=== PATIENT | male | born 1995 | race Caucasian/White ===

== ENCOUNTER 2017-01-10 19:22 | Emergency (ER) | payer BC, OTHER ==
[~2017-01-10] VITALS: Ht 182.9 cm; Wt 92.0 kg
[2017-01-10 19:26] VITALS: Ht 182.9 cm; Wt 92.0 kg
[2017-01-10] MEDS ORDERED: IBUP-103 PO (19:48)
[2017-01-10] MEDS ORDERED: XYLOCAINE 1%/SOD BICARB 20 ML VIAL INFIL ONE (20:00)
[2017-01-10 21:23] VITALS: BP 129/70; PULSE 72; TEMP 36.6; O2SAT 98
--- NOTE | 2017-01-10 23:50 | EMERGENCY ROOM VISIT NOTE ---
History First contact with patient: 19:33 Chief Complaint: LACERATION/CUT (NON-SUTURE) Stated Complaint: L INDEX LAC Nursing Triage Summary: laceration to left index finger History of Present Illness The patient is a 21 year old male who presents to the Emergency Room with complaints of a left index finger laceration. The patient cut his finger while cutting tilapia approximately 2 and half hours ago. The patient denies any paresthesias or numbness of the fingertip. He reports only mild discomfort with flexion and extension of the finger, and has not noticed any loss of function. The patient believes that his tetanus immunization is up-to-date, but will call his parents or family doctor for verification. The patient is [id number]. Review of Systems 6 system review was performed and was negative except for pertinent positives and negatives as indicated in history of present illness Past Medical/Surgical History Medical Problems: (1) No significant past medical history Surgical Problems: (1) History of reconstruction of anterior cruciate ligament tear Family History No significant family history Social History Smoking Status: Never Smoker Alcohol Use: occasionally Marital Status: single Housing Status: lives alone Occupation Status: [employer] student Current/Historical Medications Scheduled PRN Ibuprofen Tab (Advil), 400 MG PO Q6H PRN for Pain Physical Exam Vital Signs Date Time Temp Pulse Resp B/P (MAP) Pulse Ox O2 Delivery O2 Flow Rate FiO2 01/10/17 21:23 36.6 72 16 129/70 98 01/10/17 19:26 36.6 65 16 136/82 96 Room Air Physical Exam CONSTITUTIONAL: Healthy and well nourished. Alert and oriented X 3 with positive affect. HEENT: Normocephalic, atraumatic. Pupils equal, round and reactive. NECK: Full active range of motion without discomfort. MUSCULOSKELETAL: Examination of the left index finger shows a 1 cm curvilinear laceration on the volar base of the middle phalanx region. No active bleeding is noted. The patient is able to flex the finger against resistance without any loss of strength. Capillary refill is less than 2 seconds. INTEGUMENTARY: No rash or other significant dermatologic conditions noted. NEUROLOGIC: Left index finger is sensory intact. Medical Decision & Procedures Procedure Laceration repair was performed under digital block anesthesia after receiving verbal consent from the patient. The procedure was also performed by our physician assistant boys track coach student under my direct supervision. Using buffered 1% lidocaine without epinephrine, good digital block anesthesia was administered. Peripheral tissue was then cleansed with iodine, then the wound was copiously pressure irrigated with normal saline. Exploration of the wound does not show any involvement of the underlying tendons, vasculature, nerves or bone. The wound was then approximated using 5-0 nylon simple interrupted sutures. A bacitracin dressing was applied. ED Course Patient history and physical exam were performed. Nurse's notes were reviewed. Vital signs were reviewed and were normal. Laceration repair was performed under digital block anesthesia. The patient was provided additional verbal and written wound care instructions. Ice and elevation for swelling. Ibuprofen or Tylenol as needed for pain. Removal in 12-14 days, or seek reevaluation sooner for any signs of infection. The patient will check on his tetanus booster status. The patient denied any pain at the conclusion of my exam, and voiced understanding of all discharge instructions. Medical Decision Blood Pressure Screening Patient's blood pressure: Normal blood pressure Impression Primary Impression: Laceration of left index finger Departure Information Dispostion Home / Self-Care Referrals [facility] (PCP) Forms HOME CARE DOCUMENTATION FORM, IMPORTANT VISIT INFORMATION Patient Instructions My [facility] Additional Instructions Keep wound clean and dry. Do not allow any crusting or dried blood to accumulate on sutures. If this occurs, use a 1:1 solution of hydrogen peroxide/ water on a Q-tip to clean the wound. Use an antibiotic ointment for 3-4 days, then let wound dry. Suture removal in 12-14 days. Return sooner for any signs of infection (increasing redness, swelling, drainage). Ice and elevate for swelling and pain. Ibuprofen 600 mg and/or Tylenol 1000 mg every 6 hrs for pain. There are fine with your family doctor or science manager that sure tetanus immunization is up-to-date. If it is not, you may return to [facility] or a local urgent care center for this injection. Problem Qualifiers Primary Impression: Laceration of left index finger Encounter type: initial encounter Damage to nail status: without damage Foreign body presence: without foreign body Qualified Codes: S61.211A - Laceration without foreign body of left index finger without damage to nail, initial encounter
== END 2017-01-10 21:24 | disposition home or self-care (01) ==
LOC: C.EDB 19:24 → C.EDD 21:24
DX: S61.211A Laceration without foreign body of left index finger without damage to nail, initial encounter (principal); W26.0XXA Contact with knife, initial encounter; Y92.9 Unspecified place or not applicable

== ENCOUNTER 2017-06-22 21:46 | Emergency (ER) | payer BC, OTHER ==
[~2017-06-22] VITALS: Ht 182.9 cm; Wt 91.9 kg
[~2017-06-22 21:46] MED LIST: IBUP-103 PO
[2017-06-22 21:48] VITALS: TEMP 36.6; Ht 182.9 cm; Wt 91.9 kg
[2017-06-22] MEDS ORDERED: IBUPROFEN 600 MG TAB PO STA (21:59)
--- NOTE | 2017-06-22 22:36 | DIAGNOSTIC IMAGING REPORT ---
L SHOULDER MIN 2 VIEWS ROUTINE CLINICAL HISTORY: 22 years-old Male presenting with Shoulder injury/pain. TECHNIQUE: Internal rotation, external rotation, Grashey views of the left shoulder were obtained. COMPARISON: None. FINDINGS: Acromioclavicular and glenohumeral joints congruent. No advanced degenerative change. No acute fracture or malalignment. Visualized portion of the left hemithorax normal. No radiographic soft tissue abnormality. IMPRESSION: No acute osseous injury of the left shoulder. Electronically signed by: Jonathan Malloy M.D. 06/22/2017 10:35 PM Dictated Date/Time: 06/22/2017 10:34 PM
--- NOTE | 2017-06-22 23:00 | EMERGENCY ROOM VISIT NOTE ---
ED Visit Note First contact with patient: 21:52 CHIEF COMPLAINT: Left shoulder injury HISTORY OF PRESENT ILLNESS: This 22-year-old male presents to the ER with chief complaint of left shoulder injury and pain. The patient states that he was snowboarding 2 weeks ago and fell landing onto his left shoulder. The patient states that he normally lifts weights but took a week off from lifting to rest the shoulder. The patient has been lifting every day this week and his symptoms have gotten progressively worse. He went to a chiropractor today and he felt slightly better but then tonight when he was raising his left arm over his head to comb his hair he felt a "pop" in his shoulder. Since then he has increased pain. The patient has not taken anything for pain. The patient denies any prior injury to his shoulder. The patient is right-hand dominant. REVIEW OF SYSTEMS: 6 system review was performed and was negative unless stated otherwise in history of present illness. PMH: The patient is healthy; there is no significant medical or surgical history. SOCIAL HISTORY: Patient lives at home. Non-smoker, no excessive alcohol use. PHYSICAL EXAM: Vital Signs: Were reviewed reviewed nurse's notes GENERAL: 22- year-old male appears in no acute distress. MENTAL Status: Alert and oriented 3. LEFT SHOULDER:. The shoulder is not swollen or deformed on inspection. The patient has limited range of motion with abduction and extension. There is no tenderness of the distal clavicle. No eccymosis seen. The patient has tenderness to palpation over the entire shoulder region. No specific point tenderness noted. Muscle strength is 5 out of 5 bilateral upper extremities and symmetrical. EMERGENCY DEPARTMENT COURSE: Patient was evaluated. The patient was given Motrin 600 mg p.o. for pain. X-ray of the left shoulder was ordered interpreted by the radiologist and myself. DIAGNOSTICS:L SHOULDER MIN 2 VIEWS ROUTINE CLINICAL HISTORY: 22 years-old Male presenting with Shoulder injury/pain. TECHNIQUE: Internal rotation, external rotation, Grashey views of the left shoulder were obtained. COMPARISON: None. FINDINGS: Acromioclavicular and glenohumeral joints congruent. No advanced degenerative change. No acute fracture or malalignment. Visualized portion of the left hemithorax normal. No radiographic soft tissue abnormality. IMPRESSION: No acute osseous injury of the left shoulder. Electronically signed by: Jonathan Malloy M.D. 06/22/2017 10:35 PM Dictated Date/Time: 06/22/2017 10:34 PM The patient was informed of the findings. The patient was discharged to home in stable condition DIAGNOSIS: Left shoulder injury DISCHARGE INSTRUCTIONS & TREATMENT: Ibuprofen 600 mg every 6 hours with food for pain. No strenuous lifting or exercise with her upper body until evaluated by orthopedics. Call [facility] tomorrow for follow-up appointment. Current/Historical Medications No Active Prescriptions or Reported Meds Allergies Coded Allergies: No Known Allergies (Unverified , 01/10/17) Vital Signs Date Time Temp Pulse Resp B/P (MAP) Pulse Ox O2 Delivery O2 Flow Rate FiO2 06/22/17 21:48 36.6 57 18 157/87 98 Room Air Medications Administered Medications (Trade) Dose Ordered Sig/Slava Route Start Time Stop Time Status Last Admin Dose Admin Ibuprofen (Motrin Tab) 600 mg NOW STAT PO 06/22/17 21:59 06/22/17 22:02 DC 06/22/17 22:05 600 MG Departure Information Prescriptions No Active Prescriptions or Reported Meds Referrals [facility] (PCP) Patient Instructions My [facility]
[2017-06-22 23:04] VITALS: BP 154/74; PULSE 100; O2SAT 96
== END 2017-06-22 23:05 | disposition home or self-care (01) ==
LOC: C.EDB 21:48 → C.EDD 23:05
DX: S49.92XA Unspecified injury of left shoulder and upper arm, initial encounter (principal); V00.311A Fall from snowboard, initial encounter; Y93.23 Activity, snow (alpine) (downhill) skiing, snowboarding, sledding, tobogganing and snow tubing